=== PATIENT | female | born 1950 | race Caucasian/White ===

== ENCOUNTER 2022-09-30 14:30 | Inpatient (IN) | payer MEDICARE, BC ==
[~2022-09-30] VITALS: Ht 152.4 cm; Wt 117.9 kg
--- NOTE | 2022-09-30 15:10 | NUR ---
On arrival pt was on room air and noted to be blueish with saturation of 84%. Pt placed on 5 l/min by nasal canula and saturation increased to 99%. pt is drowsy and easily arousable and oriented x4 BP is111/57 HR 58 RR 24.
[2022-09-30 15:26] LABS: HEMATOCRIT 39.4 % (31.2-41.9); MEAN CORPUSCULAR HEMOGLOBIN 31.2 uug (24.7-32.8); MEAN CORPUSCULAR VOLUME 95.3 fL (75.5-95.3); PLATELET COUNT (AUTO) 192 K/uL (179-408)
[2022-09-30 15:47] LABS: ALANINE AMINOTRANSFERASE 31 U/L (14-59); ALKALINE PHOSPHATASE 58 U/L (50-136); ASPARTATE AMINOTRANSFERASE 88 U/L (15-37); BILIRUBIN,DIRECT 0.2 mg/dL (0.0-0.2); BILIRUBIN,TOTAL 0.4 mg/dL (0.2-1.0); CARBON DIOXIDE 31 mmol/L (21-32); CHLORIDE 90 mmol/L (98-107); CREATININE 2.5 mg/dL (0.6-1.3); LIPASE 220 U/L (73-393); TOTAL PROTEIN, SERUM 7.5 g/dL (6.4-8.2)
[2022-09-30 15:48] LABS: GLUCOSE 323 mg/dL (74-106)
[2022-09-30 15:49] LABS: UREA NITROGEN, BLOOD 95 mg/dL (7-18)
[2022-09-30] MEDS ORDERED: VALS160T2 PO (15:50)
[2022-09-30] MEDS ORDERED: FURO-151 PO (15:50)
[2022-09-30] MEDS ORDERED: INSU100V7 SQ (15:50)
[2022-09-30] MEDS ORDERED: APIX5TAB PO (15:50)
--- NOTE | 2022-09-30 15:50 | NUR ---
pt transported to CT for scan of brain and abdomen and pelvis without contrast
--- NOTE | 2022-09-30 16:12 | NUR ---
pt returned from CT scan and placed back on monitor VS stable oxygen saturation is 93% on 5 L/min by NC, HR 56 BP 102/43
--- NOTE | 2022-09-30 17:36 | NUR ---
notified about pt's BP of 90/49 dropping to 83/[address] Pierson performed an ultrasound of heart.
[2022-09-30] MEDS ORDERED: NOREPINEPHRINE BITARTRATE 8 MG in IV NORMAL SALINE 250 ML IV ONE (17:45)
--- NOTE | 2022-09-30 17:51 | NUR ---
Dr Newsome notified about pt's BP running low and ordered pt to be admitted to ICU and started on levophed drip.
--- NOTE | 2022-09-30 18:01 | NUR ---
At this time admitting N.Rick Newsome called and notified that ER physician had ordered levophed for low sbp but Patient was not started due sbp within desired limits. Orders to continue ICU monitoring received He as also informed that patient's heart rate is curretly in the 115-120's Afib. Orders for a bolus of 250cc NS received. and implemented. Addendum: 09/30/22 at 1833 by EVERETT Orders to ICU monitoring received. Smudger notified.
--- NOTE | 2022-09-30 18:28 | NUR ---
Patient not moved to transition care yet and orders for 250 cc's of NS ordered by Narciso Newsome unable to order. Patient received medication as ordered.
[2022-09-30] MEDS ORDERED: ONDANSETRON 4 MG/2 ML VIAL IV PRN (19:15)
[2022-09-30] MEDS ORDERED: ACETAMINOPHEN 325 MG TABLET PO PRN (19:15)
[2022-09-30] MEDS ORDERED: AMIODARONE HCL IV 450 MG in IV DEXTROSE 5% 250 ML IV PRN (19:30)
[2022-09-30] MEDS ORDERED: AMIODARONE HCL IV 150 MG in IV DEXTROSE 5% 100 ML IV ONE (19:30)
[2022-09-30] MEDS ORDERED: AMIODARONE HCL 150 MG/3 ML VIAL IV ONE ×2 (19:31→21:42)
[2022-09-30] MEDS ORDERED: IV NORMAL SALINE 250 ML IV ONE ×2 (20:00→22:45)
--- NOTE | 2022-09-30 20:08 | NUR ---
Pt vomitted on the floor coffee ground emesis. made aware.
[2022-09-30] MEDS ORDERED: PANTOPRAZOLE SODIUM 40 MG VIAL ONE (20:27)
--- NOTE | 2022-09-30 20:30 | NUR ---
Lab called, spoke to Dinora. Patient is positive for influenza type A.
--- NOTE | 2022-09-30 20:32 | NUR ---
Called [facility] to speak to Dr Narciso Newsome. Left a message letting him know patient is Influenza type A positive.
[2022-09-30] MEDS: PANTOPRAZOLE SODIUM IV 80 MG in IV DEXTROSE 5% 100 ML IV ONE (20:35)
[2022-09-30] MEDS ORDERED: POTASSIUM CHLORIDE 20 MEQ TAB.PRT.SR PO ONE (21:30)
[2022-09-30] MEDS ORDERED: DEXTROSE 50% 50 ML DISP.SYRIN IV PRN (21:30)
[2022-09-30] MEDS: IV LACTATED RINGERS SOLUTION 1,000 ML IV PRN (22:00)
--- NOTE | 2022-09-30 22:41 | NUR ---
Called [facility] to akmini Newsome NP, to update on patient's condition, low BP 66/41.
[2022-09-30] MEDS ORDERED: PHENYLEPHRINE IV 50 MG in IV NORMAL SALINE 245 ML IV PRN (22:45)
--- NOTE | 2022-09-30 22:46 | NUR ---
Received call back from Narciso Newsome CHANGE ANALYST, new orders neosynephrine and 250ml NS bolus.
[2022-09-30] MEDS ORDERED: PHENYLEPHRINE 10 MG/1 ML VIAL ONE (22:49)
[2022-09-30] MEDS ORDERED: LIDOCAINE 2% (GLYDO= UROJET) 10 ML JELLY MM ONE (23:30)
--- NOTE | 2022-09-30 23:40 | NUR ---
García catether placed on patient. Urine specimen sent to the lab.
[2022-10-01] VITALS (21 sets, daily range): BP systolic 76–150; BP diastolic 35–101
[2022-10-01 00:08] LABS: *BILIRUBIN,URIN NEGATIVE (NEGATIVE); *BLOOD, URINE 1+ (NEGATIVE); *CLARITY,URINE CLOUDY (CLEAR); *COLOR,URINE LIGHT YELLOW (YELLOW); *KETONES,URINE NEGATIVE (NEGATIVE); *UROBILINOGEN,URINE 0.2 E.U./dl (NORMAL); LEUKOCYTE ESTERASE ,URINE 3+ (NEGATIVE); NITRITE, URINE NEGATIVE (NEGATIVE); UGLUCOSE TRACE (NEGATIVE)
[2022-10-01 00:13] LABS: BACTERIA,URINE MANY /HPF (NONE SEEN); SQUAMOUS EPITHELIAL CELL,UR FEW /HPF (NONE SEEN); WBC,URINE 50-80 /HPF (0-3)
--- NOTE | 2022-10-01 00:40 | NUR ---
Called [facility] to page Jake HENSON, regarding patient's urine results.
--- NOTE | 2022-10-01 00:44 | NUR ---
Received call back from Jake HENSON, new orders cy.
[2022-10-01] MEDS ORDERED: CEFTRIAXONE 1 G in IV DEXTROSE 5% 50 ML IV SCH ×2 (00:45→01:05)
[2022-10-01] MEDS ORDERED: CEFTRIAXONE /D5W 50ML IVPB **ER PYXIS IV ONE ×2 (00:46→21:25)
[2022-10-01] MEDS ORDERED: INSULIN REGULAR, HUMAN 300 UNIT/3 ML VIAL ONE (01:03)
[2022-10-01] MEDS: INSULIN REGULAR, HUMAN 300 UNIT/3 ML VIAL SQ PRN ×4 (01:07→22:12)
[2022-10-01] MEDS ORDERED: PANTOPRAZOLE SODIUM 40 MG VIAL IV SCH (01:15)
[2022-10-01] MEDS: PANTOPRAZOLE SODIUM IV 80 MG in IV DEXTROSE 5% 100 ML IV ONE (01:16)
--- NOTE | 2022-10-01 01:40 | NUR ---
Called [facility] to page Jake HENSON for critical value troponin 63.
--- NOTE | 2022-10-01 02:10 | NUR ---
Stopped amiodarone drip due to HR below 60.
[2022-10-01] MEDS: INSULIN GLARGINE,HUM 300 UNITS/3 ML CARTRIDGE SQ SCH ×2 (02:43→22:14)
--- NOTE | 2022-10-01 04:50 | NUR ---
Pt pulled out her second IV line.
[2022-10-01 05:35] LABS: HEMATOCRIT 39.9 % (31.2-41.9); MEAN CORPUSCULAR HEMOGLOBIN 32.4 uug (24.7-32.8); MEAN CORPUSCULAR VOLUME 94.7 fL (75.5-95.3); PLATELET COUNT (AUTO) 202 K/uL (179-408)
[2022-10-01 05:54] LABS: CARBON DIOXIDE 34 mmol/L (21-32); CHLORIDE 93 mmol/L (98-107); CHOLESTEROL 165 mg/dL (<200); CREATININE 2.5 mg/dL (0.6-1.3); GLUCOSE 167 mg/dL (74-106); HDL CHOLESTEROL 38 mg/dL (40-60); MAGNESIUM 2.7 mg/dL (1.8-2.4); PHOSPHOROUS 6.7 mg/dL (2.5-4.9); TRIGLYCERIDES 273 MG/DL (30-150)
[2022-10-01 06:00] LABS: POTASSIUM 2.7 mmol/L (3.5-5.1); UREA NITROGEN, BLOOD 100 mg/dL (7-18)
--- NOTE | 2022-10-01 06:10 | NUR ---
Called [facility] to page Jake HENSON.
--- NOTE | 2022-10-01 06:11 | NUR ---
Received call back from Jake HENSON, reported new critical values, new order potassium IV 40 MEQ BID
[2022-10-01] MEDS ORDERED: POTASSIUM CHLORIDE 50 ML IV SCH (07:00)
[2022-10-01] MEDS ORDERED: PANTOPRAZOLE SODIUM 40 MG TABLET.DR PO SCH (07:00)
--- NOTE | 2022-10-01 07:00 | NUR ---
received patient from overnight babysitter nurse. pt's VS stable BP 126/54 HR48 RR 20 T 97.6 O2 saturation is 100%
[2022-10-01] MEDS ORDERED: POTASSIUM CHLORIDE 50 ML ONE ×3 (08:03→09:41)
[2022-10-01] MEDS: BLOOD SUGAR DIAGNOSTIC 1 EACH STRIP VI SCH ×4 (08:16→21:24)
[2022-10-01] MEDS: POTASSIUM CHLORIDE 50 ML IV SCH ×3 (08:19→09:43)
[2022-10-01] MEDS ORDERED: PANTOPRAZOLE SODIUM IV 40 MG in IV DEXTROSE 5% 100 ML IV SCH ×4 (09:00)
[2022-10-01 09:56] LABS: ABG BASE EXCESS 3.9 mmol/L; ABG HCO3 29.6 mmol/L; ABG PCO2 48.9 mmHg (35.0-45.0); ABG PO2 69.6 mmHg (75.0-100.0); ABG SITE RIGHT RADIAL; ABG TOTAL HEMOGLOBIN 13.5 G/dL (12.0-16.0); COHb 0.6 % (0.5-1.5); MetHb 0.1 % (0.0-1.5); O2Hb 93.5 % (94.0-97.0); VENT MODE Nasal Cannula
[2022-10-01] MEDS ORDERED: LIDOCAINE HCL 1% 20 ML VIAL IJ ONE ×2 (12:15→12:30)
[2022-10-01] MEDS ORDERED: LIDOCAINE 1%-EPI 1:100,000 20 ML VIAL ONE (12:31)
--- NOTE | 2022-10-01 12:42 | NUR ---
Echo completed reported result 55% report in chart for MD review. CT scan completed transported by lynda on monitor and oxygen at 4 l/min with RN accomanpanying her during transport and procedure
[2022-10-01] MEDS: PHENYLEPHRINE IV 50 MG in IV NORMAL SALINE 245 ML IV PRN (17:15)
[2022-10-01] MEDS ORDERED: ALBUMIN HUMAN 25% 50 ML IV PRN (18:45)
[2022-10-01] MEDS ORDERED: ALBUMIN HUMAN 25% 50 ML ONE (19:09)
[2022-10-01] MEDS ORDERED: PANTOPRAZOLE SODIUM 40 MG VIAL ONE (21:25)
[2022-10-01] MEDS: PANTOPRAZOLE SODIUM 40 MG VIAL IV SCH (21:56)
[2022-10-01] MEDS: CEFTRIAXONE 1 G in IV DEXTROSE 5% 50 ML IV SCH (21:56)
[2022-10-01] MEDS: MIDODRINE HCL 5 MG TABLET PO SCH (22:00)
[2022-10-02] VITALS (47 sets, daily range): BP systolic 71–139; BP diastolic 40–99
[2022-10-02] MEDS: BLOOD SUGAR DIAGNOSTIC 1 EACH STRIP VI SCH ×4 (08:24→21:35)
[2022-10-02] MEDS: INSULIN REGULAR, HUMAN 300 UNIT/3 ML VIAL SQ PRN ×2 (08:41→12:25)
[2022-10-02] MEDS ORDERED: MIDODRINE HCL 5 MG TABLET ONE ×2 (08:46→13:56)
[2022-10-02] MEDS ORDERED: PANTOPRAZOLE SODIUM 40 MG VIAL ONE (08:46)
[2022-10-02] MEDS: PANTOPRAZOLE SODIUM 40 MG VIAL IV SCH ×2 (08:47→21:27)
[2022-10-02] MEDS: MIDODRINE HCL 5 MG TABLET PO SCH ×3 (08:48→22:58)
[2022-10-02] MEDS ORDERED: AMIODARONE HCL IV 150 MG in IV DEXTROSE 5% 100 ML IV ONE (09:30)
[2022-10-02 10:14] LABS: MEAN CORPUSCULAR HEMOGLOBIN 31.8 uug (24.7-32.8); MEAN CORPUSCULAR VOLUME 94.9 fL (75.5-95.3); PLATELET COUNT (AUTO) 155 K/uL (179-408)
[2022-10-02] MEDS: AMIODARONE HCL IV 450 MG in IV DEXTROSE 5% 250 ML IV PRN ×2 (10:30→16:33)
[2022-10-02 10:37] LABS: CARBON DIOXIDE 35 mmol/L (21-32); CHLORIDE 96 mmol/L (98-107); CREATININE 2.1 mg/dL (0.6-1.3); GLUCOSE 235 mg/dL (74-106); MAGNESIUM 2.7 mg/dL (1.8-2.4); PHOSPHOROUS 5.1 mg/dL (2.5-4.9)
[2022-10-02 10:41] LABS: POTASSIUM 2.6 mmol/L (3.5-5.1)
[2022-10-02 10:42] LABS: UREA NITROGEN, BLOOD 101 mg/dL (7-18)
--- NOTE | 2022-10-02 10:42 | NUR ---
Relayed potassium of 2.6 and BUN of 101 to the nurse who is caring for this patient.
--- NOTE | 2022-10-02 10:45 | NUR ---
given lab value of serum potassium 2.6 ,MAGALIE abreu called stat.
--- NOTE | 2022-10-02 11:00 | NUR ---
MAGALIE abreu called fot serum potassium of 2.6
--- NOTE | 2022-10-02 11:15 | NUR ---
MAGALIE abreu called for a potassium of 2.6
[2022-10-02] MEDS: PHENYLEPHRINE IV 50 MG in IV NORMAL SALINE 245 ML IV PRN (11:29)
[2022-10-02] MEDS ORDERED: POTASSIUM CHLORIDE 10 MEQ TAB.PRT.SR ONE ×2 (12:04→13:56)
[2022-10-02] MEDS: POTASSIUM CHLORIDE 10 MEQ TAB.PRT.SR PO SCH ×2 (12:05→13:57)
[2022-10-02] MEDS: POTASSIUM CHLORIDE 50 ML IV SCH ×3 (12:49→14:58)
[2022-10-02] MEDS ORDERED: POTASSIUM CHLORIDE 50 ML ONE ×3 (12:50→14:19)
[2022-10-02] MEDS: IV LACTATED RINGERS SOLUTION 1,000 ML IV PRN (15:11)
[2022-10-02] MEDS ORDERED: CEFTRIAXONE /D5W 50ML IVPB **ER PYXIS IV ONE (21:23)
[2022-10-02 21:27] LABS: CARBON DIOXIDE 32 mmol/L (21-32); CHLORIDE 101 mmol/L (98-107); CREATININE 1.8 mg/dL (0.6-1.3); GLUCOSE 151 mg/dL (74-106); POTASSIUM 3.7 mmol/L (3.5-5.1)
[2022-10-02 21:48] LABS: UREA NITROGEN, BLOOD 92 mg/dL (7-18)
[2022-10-02] MEDS: INSULIN GLARGINE,HUM 300 UNITS/3 ML CARTRIDGE SQ SCH (21:53)
[2022-10-02] MEDS: CEFTRIAXONE 1 G in IV DEXTROSE 5% 50 ML IV SCH (21:54)
[2022-10-03] VITALS (23 sets, daily range): BP systolic 100–140; BP diastolic 52–92
[2022-10-03 05:16] LABS: HEMATOCRIT 43.7 % (31.2-41.9); MEAN CORPUSCULAR VOLUME 95.9 fL (75.5-95.3); PLATELET COUNT (AUTO) 163 K/uL (179-408)
[2022-10-03 05:23] LABS: CARBON DIOXIDE 32 mmol/L (21-32); CHLORIDE 103 mmol/L (98-107); CREATININE 1.7 mg/dL (0.6-1.3); GLUCOSE 198 mg/dL (74-106); MAGNESIUM 2.8 mg/dL (1.8-2.4); PHOSPHOROUS 3.3 mg/dL (2.5-4.9); POTASSIUM 3.4 mmol/L (3.5-5.1)
[2022-10-03 05:32] LABS: UREA NITROGEN, BLOOD 83 mg/dL (7-18)
[2022-10-03] MEDS: MIDODRINE HCL 5 MG TABLET PO SCH ×3 (06:50→22:10)
--- NOTE | 2022-10-03 07:25 | NUR ---
Received pt. sleeping hemodynamically on A-fib controlled/uncontrolled rate in the 70-130's,systolic blood pressure of 135/69 and levophed infusing at 0.46 and started titrating down PP. García to gravity with adequate output. picc line with dressing almost falling off changed per protocol.
[2022-10-03] MEDS: PHENYLEPHRINE IV 50 MG in IV NORMAL SALINE 245 ML IV PRN (07:49)
[2022-10-03] MEDS: AMIODARONE HCL IV 450 MG in IV DEXTROSE 5% 250 ML IV PRN ×2 (07:49→17:59)
[2022-10-03] MEDS: BLOOD SUGAR DIAGNOSTIC 1 EACH STRIP VI SCH ×4 (08:09→21:26)
[2022-10-03] MEDS: IV LACTATED RINGERS SOLUTION 1,000 ML IV PRN ×2 (08:15→21:56)
--- NOTE | 2022-10-03 08:45 | NUR ---
Cardiology services, in the unit and order to continue with amiodarone drip at 0.5mg/min. once the 24 hour protocol currently running is completed. and continue to monitor.
[2022-10-03] MEDS: INSULIN REGULAR, HUMAN 300 UNIT/3 ML VIAL SQ PRN ×4 (08:46→21:54)
[2022-10-03] MEDS: PANTOPRAZOLE SODIUM 40 MG VIAL IV SCH ×2 (09:08→21:26)
[2022-10-03] MEDS: POTASSIUM CHLORIDE 50 ML IV SCH ×3 (09:10→11:08)
--- NOTE | 2022-10-03 10:30 | NUR ---
Attending Bhavana Guardado in the unit to follow up on pt. report given orders to continue with care plan received.
[2022-10-03] MEDS: GLUCERNA SHAKE 237 ML CAN PO SCH ×2 (12:15→17:43)
[2022-10-03] MEDS ORDERED: REMEDY ESSENTIAL ZINC PASTE 113 GM TOP PRN (16:30)
[2022-10-03] MEDS: INSULIN GLARGINE,HUM 300 UNITS/3 ML CARTRIDGE SQ SCH (21:42)
[2022-10-03] MEDS ORDERED: CEFTRIAXONE 1 G VIAL ONE (21:47)
[2022-10-03] MEDS: CEFTRIAXONE 1 G in IV DEXTROSE 5% 50 ML IV SCH (21:56)
[2022-10-04] VITALS (24 sets, daily range): BP systolic 106–165; BP diastolic 54–116
[2022-10-04 05:04] LABS: HEMATOCRIT 33.7 % (31.2-41.9); MEAN CORPUSCULAR HEMOGLOBIN 31.9 uug (24.7-32.8); MEAN CORPUSCULAR VOLUME 94.7 fL (75.5-95.3); PLATELET COUNT (AUTO) 117 K/uL (179-408)
[2022-10-04 05:07] LABS: CARBON DIOXIDE 34 mmol/L (21-32); CHLORIDE 102 mmol/L (98-107); CREATININE 1.2 mg/dL (0.6-1.3); GLUCOSE 131 mg/dL (74-106); MAGNESIUM 2.3 mg/dL (1.8-2.4); PHOSPHOROUS 1.9 mg/dL (2.5-4.9); POTASSIUM 2.9 mmol/L (3.5-5.1); UREA NITROGEN, BLOOD 56 mg/dL (7-18)
[2022-10-04] MEDS: MIDODRINE HCL 5 MG TABLET PO SCH (06:00)
--- NOTE | 2022-10-04 07:20 | NUR ---
Received pt. on A-fib uncontrolled rate of 100-120's. sbp within desired limits off levophed since 10/03/22.1000. Afebrile. on 4liters oxygen via NC saturation above 95%. no tachypnea or sob noted or reported. Patient denies any pain or discomfort at this time. García to gravity clear fabiana output. skin issues unresolved pt. will continue to monitor.
[2022-10-04] MEDS: BLOOD SUGAR DIAGNOSTIC 1 EACH STRIP VI SCH ×5 (07:46→22:00)
[2022-10-04] MEDS: INSULIN REGULAR, HUMAN 300 UNIT/3 ML VIAL SQ PRN ×3 (07:47→16:23)
[2022-10-04] MEDS ORDERED: POTASSIUM CHLORIDE 20 MEQ POWDER PACKET GT ONE (08:45)
[2022-10-04] MEDS ORDERED: POTASSIUM CHLORIDE 20 MEQ TAB.PRT.SR PO ONE (08:45)
[2022-10-04] MEDS: PANTOPRAZOLE SODIUM 40 MG VIAL IV SCH (08:46)
[2022-10-04] MEDS: GLUCERNA SHAKE 237 ML CAN PO SCH ×3 (08:46→17:32)
[2022-10-04] MEDS: AMIODARONE HCL IV 450 MG in IV DEXTROSE 5% 250 ML IV PRN (08:51)
--- NOTE | 2022-10-04 09:00 | NUR ---
Patient seen by energy specialist Dr. Quiroga report given see order hx.
[2022-10-04] MEDS: POTASSIUM CHLORIDE 50 ML IV SCH ×4 (09:03→11:45)
--- NOTE | 2022-10-04 09:25 | NUR ---
A call from GI physician Dr. Smith report given and as stated by Md. "Continue with current care plan there's nothing from GI stand point of view pt's hgb/hct stable".
[2022-10-04] MEDS: METOPROLOL TARTRATE 50 MG TABLET PO SCH ×2 (09:42→21:02)
[2022-10-04] MEDS: IV LACTATED RINGERS SOLUTION 1,000 ML IV PRN (13:21)
[2022-10-04] MEDS ORDERED: SODIUM PHOSPHATE MM 15 MMOL in IV NORMAL SALINE 250 ML IV ONE (16:30)
[2022-10-04] MEDS: PANTOPRAZOLE SODIUM 40 MG TABLET.DR PO SCH (17:32)
[2022-10-04] MEDS: INSULIN GLARGINE,HUM 300 UNITS/3 ML CARTRIDGE SQ SCH (21:00)
[2022-10-04] MEDS: CEFTRIAXONE 1 G in IV DEXTROSE 5% 50 ML IV SCH (21:05)
[2022-10-05] VITALS (23 sets, daily range): BP systolic 92–183; BP diastolic 40–113
[2022-10-05] MEDS ORDERED: MORPHINE SULFATE 4 MG/1 ML DISP.SYRIN IV PRN ×2 (01:15)
[2022-10-05] MEDS ORDERED: diphenhydrAMINE 50 MG/1 ML VIAL IV PRN (02:45)
[2022-10-05] MEDS ORDERED: LORAZEPAM 2 MG/1 ML VIAL IV ONE (03:30)
[2022-10-05 05:10] LABS: HEMATOCRIT 33.3 % (31.2-41.9); MEAN CORPUSCULAR HEMOGLOBIN 32.3 uug (24.7-32.8); MEAN CORPUSCULAR VOLUME 94.7 fL (75.5-95.3); PLATELET COUNT (AUTO) 106 K/uL (179-408)
[2022-10-05 05:38] LABS: CARBON DIOXIDE 35 mmol/L (21-32); CHLORIDE 103 mmol/L (98-107); GLUCOSE 134 mg/dL (74-106); MAGNESIUM 1.9 mg/dL (1.8-2.4); PHOSPHOROUS 1.9 mg/dL (2.5-4.9); UREA NITROGEN, BLOOD 29 mg/dL (7-18)
--- NOTE | 2022-10-05 07:25 | NUR ---
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 Respiratory: on 4L NC. saturation above 92% as desired without it pt. desaturates down to 88%, no tachypnea with some sob upon exertion. Neuro-dumont AAOx4. gutiérrez to gravity. Amiodarone running at 0.5=17.2cc/hr as ordered. LR at 75ccHr. Will continue with care plan. Sacral area with no complications. Will continue to monitor.
--- NOTE | 2022-10-05 08:45 | NUR ---
Cardiology services, Dr. Quiroga in the unit to see and examine pt. report given orders to dcd amiodarone drip and IVF received. MD hernandez to down-grade pt. to LISA if heart rate remains int he 90's or below.
[2022-10-05] MEDS: GLUCERNA SHAKE 237 ML CAN PO SCH ×3 (09:00→16:05)
[2022-10-05] MEDS ORDERED: POTASSIUM PHOSPHATE MM 15 MMOL in IV NORMAL SALINE 250 ML IV ONE (09:00)
[2022-10-05] MEDS: METOPROLOL TARTRATE 50 MG TABLET PO SCH ×2 (09:09→16:13)
[2022-10-05] MEDS: POTASSIUM CHLORIDE 50 ML IV SCH ×4 (09:10→12:14)
[2022-10-05] MEDS: PANTOPRAZOLE SODIUM 40 MG TABLET.DR PO SCH ×2 (09:11→16:14)
[2022-10-05] MEDS: BLOOD SUGAR DIAGNOSTIC 1 EACH STRIP VI SCH ×3 (12:14→21:31)
[2022-10-05] MEDS: INSULIN REGULAR, HUMAN 300 UNIT/3 ML VIAL SQ PRN (12:18)
--- NOTE | 2022-10-05 12:56 | NUR ---
WOUND CARE CONSULT: PT PRESENTS WITH RT BUTTOCK AREA OF DISCOLORATION WITH SOME OPEN SKIN WELL RASH TO BUTTOCKS AND PERINEUM AND LEFT HEEL INTACT DEEP TISSUE INJURY. RECOMMENDATIONS MADE FOR SKIN PROTECTION. DISCUSSED WITH NURSING STAFF. DR SHIRA MOORE CALLED FOR SURGICAL CONSULT OF BUTTOCK AREA. PT DEMONSTRATES ABILITY TO ASSIST WITH TURNING AND REPOSITIONING BUT IS UNCOOPERATIVE AT TIMES. MD IN AGREEMENT WITH PLAN OF CARE. Addendum: 10/05/22 at 1259 by LINDA FIELD RN Amended: Links added. Addendum: 10/05/22 at 1304 by LINDA FIELD RN PT HAS CO-MORBIDITIES INCLUDING ACUTE HYPOXIC RESPIRATORY FAILURE, ACUTE RENAL FAILURE, DIABETES, A FIB, CHF AND HYPERTENSION. DUE TO MULTIPLE CO-MORBIDITIES, FURTHER SKIN BREAKDOWN MAY BE UNAVOIDABLE.
[2022-10-05] MEDS: CLOTRIMAZOLE 1% CREAM 30 GM TUBE TOP SCH (16:15)
--- NOTE | 2022-10-05 16:50 | NUR ---
At this time patient went down to sinus bradycardia and is been sustaining this rhythm wire fence builder Dr. Quiroga called notified orders received and implemented.
[2022-10-05] MEDS: INSULIN GLARGINE,HUM 300 UNITS/3 ML CARTRIDGE SQ SCH (21:00)
[2022-10-05] MEDS: CEFTRIAXONE 1 G in IV DEXTROSE 5% 50 ML IV SCH (21:14)
[2022-10-06] VITALS (16 sets, daily range): BP systolic 89–167; BP diastolic 40–73
--- NOTE | 2022-10-06 06:31 | NUR ---
Nursing Clinical Shift Note 20:00 Received pt Lethagic in bed. HR in 50's. Report from Dayshi RN that ordered Metoprolol for pt after amniodarone was stopped. Pt reported 2 nights of limited sleep, Pt recieved Benadryl on the hift. Pt is sleepy. I continue to monitor vital signs. No signs of distress. Pt has a Stage 2 pressure ulcer. Mepelex applied. 0000: Pt continues to rest. BP stable , HR in 50's. HR dropped to 8 but patient is in deep sleep. O400 Lab unable to draw blood. Explosives Detonator will try later. 0625: Pt received a bed bath at 0500. HR back to normal. Pt is much more interactive. Addendum: 10/06/22 at 0647 by VALENTIN PUENTES RN 06:45 Pt refused to have the blood pressure taken. She complains that it is too painfull. I will advise the Day Shift RN to try later.
[2022-10-06 07:32] LABS: CREATININE 0.9 mg/dL (0.6-1.3); MAGNESIUM 1.9 mg/dL (1.8-2.4); PHOSPHOROUS 2.1 mg/dL (2.5-4.9); POTASSIUM 4.3 mmol/L (3.5-5.1)
[2022-10-06] MEDS: GLUCERNA SHAKE 237 ML CAN PO SCH ×3 (08:05→16:04)
[2022-10-06] MEDS: METOPROLOL TARTRATE 50 MG TABLET PO SCH ×2 (08:05→16:04)
[2022-10-06] MEDS: PANTOPRAZOLE SODIUM 40 MG TABLET.DR PO SCH ×2 (08:05→16:04)
[2022-10-06] MEDS: CLOTRIMAZOLE 1% CREAM 30 GM TUBE TOP SCH ×2 (08:06→16:04)
[2022-10-06] MEDS: BLOOD SUGAR DIAGNOSTIC 1 EACH STRIP VI SCH ×4 (08:14→21:43)
[2022-10-06 09:19] LABS: MEAN CORPUSCULAR HEMOGLOBIN 31.6 uug (24.7-32.8); MEAN CORPUSCULAR VOLUME 96.3 fL (75.5-95.3); PLATELET COUNT (AUTO) 88 K/uL (179-408)
[2022-10-06 11:12] LABS: *BILIRUBIN,URIN NEGATIVE (NEGATIVE); *BLOOD, URINE 2+ (NEGATIVE); *CLARITY,URINE CLEAR (CLEAR); *COLOR,URINE YELLOW (YELLOW); *KETONES,URINE 1+ (NEGATIVE); *UROBILINOGEN,URINE 0.2 E.U./dl (NORMAL); LEUKOCYTE ESTERASE ,URINE TRACE (NEGATIVE); NITRITE, URINE NEGATIVE (NEGATIVE); UGLUCOSE 2+ (NEGATIVE)
[2022-10-06] MEDS: PIPERACILLIN SODIUM/TAZOBACTAM 3.375 G in IV DEXTROSE 5% 100 ML IV SCH ×2 (12:00→21:00)
[2022-10-06] MEDS: INSULIN REGULAR, HUMAN 300 UNIT/3 ML VIAL SQ PRN ×2 (12:06→21:54)
[2022-10-06 12:54] LABS: BACTERIA,URINE FEW /HPF (NONE SEEN); SQUAMOUS EPITHELIAL CELL,UR FEW /HPF (NONE SEEN); YEAST,URINE BUDDING YEAST /HPF (NONE SEEN)
[2022-10-06] MEDS ORDERED: PIPERACILLIN SODIUM/TAZOBACTAM 3.375 G in IV DEXTROSE 5% 50 ML IV SCH (14:00)
[2022-10-06] MEDS ORDERED: NEUTRA PHOS PACKET PO ONE (16:00)
[2022-10-06] MEDS: INSULIN GLARGINE,HUM 300 UNITS/3 ML CARTRIDGE SQ SCH (21:00)
[2022-10-06] MEDS ORDERED: INSU3INS6 SQ (23:03)
[2022-10-06] MEDS ORDERED: FURO40TA5 PO (23:03)
[2022-10-06] MEDS ORDERED: APIX5TAB PO (23:03)
[2022-10-06] MEDS ORDERED: VALS160T2 PO (23:03)
[2022-10-06] MEDS ORDERED: CLON0.2T PO (23:03)
[2022-10-06] MEDS ORDERED: SOTA120T PO (23:03)
[2022-10-06] MEDS ORDERED: HYDR-4077 PO (23:03)
[2022-10-06] MEDS ORDERED: METO5TAB7 PO (23:03)
[2022-10-07] VITALS: BP 127/61
[2022-10-07] MEDS: PIPERACILLIN SODIUM/TAZOBACTAM 3.375 G in IV DEXTROSE 5% 100 ML IV SCH ×3 (03:43→20:34)
[2022-10-07 04:15] VITALS: BP 145/67
[2022-10-07 06:34] LABS: HEMATOCRIT 32.9 % (31.2-41.9); MEAN CORPUSCULAR HEMOGLOBIN 32.1 uug (24.7-32.8); MEAN CORPUSCULAR VOLUME 95.4 fL (75.5-95.3); PLATELET COUNT (AUTO) 111 K/uL (179-408)
[2022-10-07 06:53] LABS: MAGNESIUM 1.9 mg/dL (1.8-2.4); PHOSPHOROUS 2.3 mg/dL (2.5-4.9); POTASSIUM 3.3 mmol/L (3.5-5.1)
[2022-10-07] MEDS: PANTOPRAZOLE SODIUM 40 MG TABLET.DR PO SCH ×2 (06:59→17:07)
[2022-10-07] MEDS: BLOOD SUGAR DIAGNOSTIC 1 EACH STRIP VI SCH ×4 (06:59→20:45)
[2022-10-07] MEDS: INSULIN REGULAR, HUMAN 300 UNIT/3 ML VIAL SQ PRN ×4 (07:45→20:46)
[2022-10-07] MEDS: GLUCERNA SHAKE 237 ML CAN PO SCH ×3 (08:12→16:20)
[2022-10-07] MEDS: FLUCONAZOLE 200 MG TABLET PO SCH (08:13)
[2022-10-07] MEDS: METOPROLOL TARTRATE 50 MG TABLET PO SCH ×2 (08:13→16:19)
[2022-10-07] MEDS: POTASSIUM CHLORIDE 50 ML IV SCH ×4 (10:44→12:28)
[2022-10-07] MEDS: CLOTRIMAZOLE 1% CREAM 30 GM TUBE TOP SCH ×2 (10:47→17:07)
[2022-10-07 11:13] VITALS: BP 104/50
--- NOTE | 2022-10-07 14:00 | NUR ---
SEEN BY WOUND CARE NURSE. AIR MATTRASS PLACED ON BED.
[2022-10-07 15:07] VITALS: BP 152/56
--- NOTE | 2022-10-07 16:00 | NUR ---
MODERATE AMOUNT SOFT STOOL X2 TODAY WITH DIAPER CHANGE.
[2022-10-07] MEDS ORDERED: NEUTRA PHOS PACKET PO ONE (16:30)
[2022-10-07 20:00] VITALS: BP 153/63
[2022-10-07] MEDS: INSULIN GLARGINE,HUM 300 UNITS/3 ML CARTRIDGE SQ SCH (20:46)
[2022-10-08] VITALS: BP 145/70
[2022-10-08] MEDS: PIPERACILLIN SODIUM/TAZOBACTAM 3.375 G in IV DEXTROSE 5% 100 ML IV SCH ×3 (03:51→20:03)
[2022-10-08 04:36] VITALS: BP 150/77
[2022-10-08] MEDS: PANTOPRAZOLE SODIUM 40 MG TABLET.DR PO SCH ×2 (06:18→17:13)
[2022-10-08] MEDS: BLOOD SUGAR DIAGNOSTIC 1 EACH STRIP VI SCH ×4 (06:34→20:12)
[2022-10-08 06:58] LABS: HEMATOCRIT 31.3 % (31.2-41.9); MEAN CORPUSCULAR HEMOGLOBIN 32.3 uug (24.7-32.8); MEAN CORPUSCULAR VOLUME 95.1 fL (75.5-95.3); PLATELET COUNT (AUTO) 122 K/uL (179-408)
[2022-10-08 08:05] LABS: CREATININE 0.9 mg/dL (0.6-1.3); MAGNESIUM 1.6 mg/dL (1.8-2.4); PHOSPHOROUS 2.3 mg/dL (2.5-4.9); POTASSIUM 3.5 mmol/L (3.5-5.1)
[2022-10-08] MEDS: GLUCERNA SHAKE 237 ML CAN PO SCH ×3 (08:46→17:16)
[2022-10-08] MEDS: CLOTRIMAZOLE 1% CREAM 30 GM TUBE TOP SCH ×2 (08:54→17:16)
[2022-10-08] MEDS: METOPROLOL TARTRATE 50 MG TABLET PO SCH ×2 (08:54→17:13)
[2022-10-08] MEDS: FLUCONAZOLE 200 MG TABLET PO SCH (08:57)
[2022-10-08 11:50] VITALS: BP 158/70
[2022-10-08] MEDS: INSULIN REGULAR, HUMAN 300 UNIT/3 ML VIAL SQ PRN ×3 (11:53→20:14)
[2022-10-08] MEDS: MAGNESIUM SULFATE/D5W 100 ML IV SCH ×3 (13:04→13:51)
[2022-10-08] MEDS ORDERED: ALBUTEROL SULFATE 2.5 MG/3 ML NEBU INH SCH (14:00)
[2022-10-08] MEDS: IPRATROPIUM BROMIDE 0.5 MG/2.5 ML NEBU NEB SCH ×2 (14:15→20:19)
[2022-10-08] MEDS: ALBUTEROL SULFATE 2.5 MG/ 0.5 ML NEBU INH SCH ×2 (14:15→20:19)
[2022-10-08 16:00] VITALS: BP 158/61
[2022-10-08] MEDS ORDERED: NEUTRA PHOS PACKET PO ONE (16:00)
--- NOTE | 2022-10-08 19:18 | NUR ---
PATIENT ALERT AND ORIENTED, ABLE TO VERBALIZE HER NEEDS AND FOLLOW DIRECTIONS. VSS REMAIN STABLE DURING SHIFT. DUE MEDICATION ADMINISTERED SCHEDULED/ORDERED BY MD. NO S/S OF HYPO/HYPERGLYCEMIA, PATIENT EATING AND DRINKING WELL, DENIES PAIN/DISCOMFORT, ONE PERSON EXTENSIVE ASSIST PROVIDED WITH PERSONAL CARE/BATHING/DRESSING. ALL NEEDS ANTICIPATED AND MET. CONTINUES ON IV ATB THERAPY ORDERED WITH NO A/R NOTED. IVIS PL INTACT AND INFUSING WELL.
[2022-10-08] MEDS: INSULIN GLARGINE,HUM 300 UNITS/3 ML CARTRIDGE SQ SCH (20:13)
[2022-10-08 20:31] VITALS: BP 160/66
[2022-10-09] VITALS (7 sets, daily range): BP systolic 134–177; BP diastolic 47–80
[2022-10-09] MEDS: PIPERACILLIN SODIUM/TAZOBACTAM 3.375 G in IV DEXTROSE 5% 100 ML IV SCH ×3 (03:46→20:41)
[2022-10-09 06:04] LABS: HEMATOCRIT 31.7 % (31.2-41.9); MEAN CORPUSCULAR HEMOGLOBIN 32.1 uug (24.7-32.8); MEAN CORPUSCULAR VOLUME 95.9 fL (75.5-95.3); PLATELET COUNT (AUTO) 116 K/uL (179-408)
[2022-10-09] MEDS ORDERED: hydrALAZINE HCL 20 MG/1 ML VIAL IV PRN ×2 (06:15→10:05)
[2022-10-09] MEDS: PANTOPRAZOLE SODIUM 40 MG TABLET.DR PO SCH ×2 (06:21→16:42)
[2022-10-09] MEDS: BLOOD SUGAR DIAGNOSTIC 1 EACH STRIP VI SCH ×4 (06:22→21:00)
[2022-10-09 06:27] LABS: CREATININE 0.7 mg/dL (0.6-1.3); MAGNESIUM 2.1 mg/dL (1.8-2.4); PHOSPHOROUS 2.4 mg/dL (2.5-4.9); POTASSIUM 3.9 mmol/L (3.5-5.1)
--- NOTE | 2022-10-09 06:27 | NUR ---
PATIENT AWAKE IN BED. DENIES PAIN. BP 180/83. CALLED OUT TO FREDERICK HENSON FOR FURTHER ORDERS.
[2022-10-09] MEDS: IPRATROPIUM BROMIDE 0.5 MG/2.5 ML NEBU NEB SCH ×3 (07:34→21:11)
[2022-10-09] MEDS: ALBUTEROL SULFATE 2.5 MG/ 0.5 ML NEBU INH SCH ×3 (07:34→21:11)
[2022-10-09] MEDS: GLUCERNA SHAKE 237 ML CAN PO SCH ×3 (08:04→16:42)
[2022-10-09] MEDS: INSULIN REGULAR, HUMAN 300 UNIT/3 ML VIAL SQ PRN ×4 (08:33→22:21)
[2022-10-09] MEDS: METOPROLOL TARTRATE 50 MG TABLET PO SCH ×2 (08:46→21:59)
[2022-10-09] MEDS: CLOTRIMAZOLE 1% CREAM 30 GM TUBE TOP SCH ×2 (08:46→16:42)
[2022-10-09] MEDS ORDERED: AMIODARONE HCL IV 150 MG in IV DEXTROSE 5% 100 ML IV ONE (10:30)
[2022-10-09] MEDS: AMIODARONE HCL IV 450 MG in IV DEXTROSE 5% 250 ML IV PRN ×2 (11:12→17:23)
[2022-10-09] MEDS ORDERED: METOPROLOL TARTRATE 50 MG TABLET PO ONE (14:45)
[2022-10-09] MEDS ORDERED: NEUTRA PHOS PACKET PO ONE (16:00)
[2022-10-09] MEDS: MAGNESIUM OXIDE 250 MG TABLET PO SCH (21:40)
[2022-10-09] MEDS: INSULIN GLARGINE,HUM 300 UNITS/3 ML CARTRIDGE SQ SCH (22:13)
[2022-10-10 00:13] VITALS: BP 138/48
[2022-10-10] MEDS: PIPERACILLIN SODIUM/TAZOBACTAM 3.375 G in IV DEXTROSE 5% 100 ML IV SCH ×3 (04:00→20:09)
[2022-10-10 04:20] VITALS: BP 152/62
--- NOTE | 2022-10-10 06:00 | NUR ---
[id number]-AT CONT.WITH STABLE VS. PT HAS BEEN A/OX4. PT DENIES S/S OF PAIN. PT HAS BEEN SLEEPING QUIETLY THROUGH MOST OF THE NIGHT. PT HAS LEFT ARM [id number]. PT HAS BEEN ON AMIODORONE DRIP @ 16.6CC/HR. PT HAS BEEN IN SR. RESPS ARE REG/UNLAB. POX 97%. PT HAS OCCASS. NON-PROD.COUGH. HOB UP >30 DEGREES. PT HAS F/C, I/P WITH [facility] CLR URINE-550CC. NO STOOL. PT STATES SHE IS FEELING BETTER TODAY. GEN. COND. HAS BEEN STABLE/GUARDED. PT ENDORSED TO AGGIE CLARK RN
[2022-10-10] MEDS: PANTOPRAZOLE SODIUM 40 MG TABLET.DR PO SCH ×2 (07:11→16:37)
[2022-10-10 07:23] LABS: HEMATOCRIT 31.3 % (31.2-41.9); MEAN CORPUSCULAR HEMOGLOBIN 32.5 uug (24.7-32.8); MEAN CORPUSCULAR VOLUME 95.4 fL (75.5-95.3); PLATELET COUNT (AUTO) 191 K/uL (179-408)
[2022-10-10] MEDS: ALBUTEROL SULFATE 2.5 MG/ 0.5 ML NEBU INH SCH ×3 (07:38→19:32)
[2022-10-10 07:39] LABS: CREATININE 0.9 mg/dL (0.6-1.3); MAGNESIUM 1.9 mg/dL (1.8-2.4); PHOSPHOROUS 2.7 mg/dL (2.5-4.9); POTASSIUM 3.5 mmol/L (3.5-5.1)
[2022-10-10] MEDS: IPRATROPIUM BROMIDE 0.5 MG/2.5 ML NEBU NEB SCH ×3 (07:39→19:32)
[2022-10-10] MEDS: BLOOD SUGAR DIAGNOSTIC 1 EACH STRIP VI SCH ×4 (07:52→20:49)
[2022-10-10 08:00] VITALS: BP_SYST 148; BP_SYST 154; BP_DIAS 48; BP_DIAS 79
[2022-10-10] MEDS: GLUCERNA SHAKE 237 ML CAN PO SCH ×3 (08:39→16:37)
[2022-10-10] MEDS: CLOTRIMAZOLE 1% CREAM 30 GM TUBE TOP SCH ×2 (08:39→16:37)
[2022-10-10] MEDS: METOPROLOL TARTRATE 50 MG TABLET PO SCH ×2 (08:57→20:51)
[2022-10-10] MEDS ORDERED: POTASSIUM CHLORIDE 20 MEQ POWDER PACKET PO ONE (09:30)
[2022-10-10] MEDS: AMIODARONE HCL 200 MG TABLET PO SCH ×2 (11:18→22:52)
[2022-10-10] MEDS: INSULIN REGULAR, HUMAN 300 UNIT/3 ML VIAL SQ PRN ×3 (11:19→20:50)
[2022-10-10 12:56] VITALS: BP 155/77
[2022-10-10 17:03] VITALS: BP 159/70
[2022-10-10 20:50] VITALS: BP 152/62
[2022-10-10] MEDS: INSULIN GLARGINE,HUM 300 UNITS/3 ML CARTRIDGE SQ SCH (20:51)
[2022-10-10] MEDS: MAGNESIUM OXIDE 250 MG TABLET PO SCH (20:51)
[2022-10-11] VITALS (7 sets, daily range): BP systolic 143–165; BP diastolic 56–72
[2022-10-11] MEDS: PANTOPRAZOLE SODIUM 40 MG TABLET.DR PO SCH (06:17)
[2022-10-11] MEDS: BLOOD SUGAR DIAGNOSTIC 1 EACH STRIP VI SCH ×3 (06:17→16:07)
[2022-10-11] MEDS: IPRATROPIUM BROMIDE 0.5 MG/2.5 ML NEBU NEB SCH ×2 (08:16→14:44)
[2022-10-11] MEDS: ALBUTEROL SULFATE 2.5 MG/ 0.5 ML NEBU INH SCH ×2 (08:16→14:44)
[2022-10-11] MEDS: METOPROLOL TARTRATE 50 MG TABLET PO SCH (08:17)
[2022-10-11] MEDS: AMIODARONE HCL 200 MG TABLET PO SCH (08:18)
[2022-10-11] MEDS: CLOTRIMAZOLE 1% CREAM 30 GM TUBE TOP SCH (08:18)
[2022-10-11] MEDS: GLUCERNA SHAKE 237 ML CAN PO SCH ×2 (08:19→12:09)
[2022-10-11] MEDS ORDERED: PANT40TA2 PO (10:54)
[2022-10-11] MEDS ORDERED: AMIO200T6 PO (10:54)
[2022-10-11] MEDS ORDERED: METO50TA16 PO (10:54)
[2022-10-11] MEDS: INSULIN REGULAR, HUMAN 300 UNIT/3 ML VIAL SQ PRN ×2 (11:16→11:21)
[2022-10-11 12:50] LABS: MEAN CORPUSCULAR HEMOGLOBIN 32.2 uug (24.7-32.8); MEAN CORPUSCULAR VOLUME 96.7 fL (75.5-95.3); PLATELET COUNT (AUTO) 228 K/uL (179-408)
--- NOTE | 2022-10-11 13:00 | NUR ---
SON INFORMED THAT CHARGE NURSE NALLELY WILL REVIEW ORDERS AND BE BACK TO SPEAK TO HIM. ALSO INSTRUCTED THAT VIDEOS AND/ON RECORDING OF NURSES AGAINST THEIR WISHES IS VIOLATION OF HIPPA. VERBALISED UNDERSTANDING.
[2022-10-11 13:08] LABS: CREATININE 0.8 mg/dL (0.6-1.3); MAGNESIUM 1.8 mg/dL (1.8-2.4); PHOSPHOROUS 2.6 mg/dL (2.5-4.9); POTASSIUM 4.2 mmol/L (3.5-5.1)
--- NOTE | 2022-10-11 17:00 | NUR ---
[facility]. Noted resident to be stable upon the discharge. No c/o pain. Noted at her baseline mentation. IV line removed. [facility] given [facility] ([facility]). All belonging returned to pt.
== END 2022-10-11 17:05 | DRG 193 ==
LOC: ER 14:34 → TRANSITION 19:00 → EDBD 19:00 → TELE3 10-01 09:53 → TRANSITION 10-01 10:02 → CCU 10-02 17:22 → TELE3 10-06 15:30 → TELE-TD3 10-09 10:02 → TELE3 10-10 12:32
PROVIDERS: ADMIT Nurse Practitioner Family; ATTEND Nurse Practitioner Acute Care
PROC: 05H633Z Insertion of Infusion Device into Left Subclavian Vein, Percutaneous Approach (ICD-10-PCS; principal; 2022-10-01)
PROC: B547ZZA Ultrasonography of Left Subclavian Vein, Guidance (ICD-10-PCS; 2022-10-01)
PROC: 02HV33Z Insertion of Infusion Device into Superior Vena Cava, Percutaneous Approach (ICD-10-PCS; 2022-10-02)
PROC: B548ZZA Ultrasonography of Superior Vena Cava, Guidance (ICD-10-PCS; 2022-10-02)
DX: J10.1 Influenza due to other identified influenza virus with other respiratory manifestations (principal); I21.A1 Myocardial infarction type 2; N17.0 Acute kidney failure with tubular necrosis; J96.01 Acute respiratory failure with hypoxia; K22.6 Gastro-esophageal laceration-hemorrhage syndrome; E87.1 Hypo-osmolality and hyponatremia; I50.32 Chronic diastolic (congestive) heart failure; N39.0 Urinary tract infection, site not specified; I13.0 Hypertensive heart and chronic kidney disease with heart failure and stage 1 through stage 4 chronic kidney disease, or unspecified chronic kidney disease; R57.9 Shock, unspecified; B37.49 Other urogenital candidiasis; K92.2 Gastrointestinal hemorrhage, unspecified; E87.6 Hypokalemia; I25.10 Atherosclerotic heart disease of native coronary artery without angina pectoris; I48.0 Paroxysmal atrial fibrillation; Z79.01 Long term (current) use of anticoagulants; N18.9 Chronic kidney disease, unspecified; Z79.4 Long term (current) use of insulin; Z87.891 Personal history of nicotine dependence; E03.9 Hypothyroidism, unspecified; E11.22 Type 2 diabetes mellitus with diabetic chronic kidney disease; Z20.822 Contact with and (suspected) exposure to COVID-19; R53.1 Weakness; L89.316 Pressure-induced deep tissue damage of right buttock; S31.000A Unspecified open wound of lower back and pelvis without penetration into retroperitoneum, initial encounter; X58.XXXA Exposure to other specified factors, initial encounter; Y93.9 Activity, unspecified; Y92.89 Other specified places as the place of occurrence of the external cause; B96.89 Other specified bacterial agents as the cause of diseases classified elsewhere; E86.0 Dehydration
CPT/HCPCS: 36415; 36569; 36600; 51702; 70450; 71045; 71250; 76770; 83605; 83690; 83735; 84100; 84443; 84484; 85025; 85730; 86850; 86900; 86901; 87040; 87400; 93005; 93307; 94640; 97535-GO-CO; A4663; A6209; A6213; C9113; G0378; J0282; J0360; J0696; J1200; J1815; J2270; J2370; J2405; J2543; J3475; J3480; J3490; J3590; J7040; J7050; J7120; P9047